=== PATIENT | male | born 1945 | race African-American/Black ===

== ENCOUNTER 2019-06-05 07:04 | Emergency (ER) | payer OTHER ==
[~2019-06-05] VITALS: Ht 175.3 cm; Wt 102.0 kg
[2019-06-05 08:38] LABS: BASOPHILS % 0.2 % (0.0-2.0); EOSINOPHILS % 0.1 % (0.0-5.0); HEMATOCRIT. 46.5 % (42.0-52.0); HEMOGLOBIN. 15.1 g/dL (14.0-18.0); LYMPHOCYTES % 8.4 % (20.0-50.0); MEAN CORPUSCULAR HEMOGLOBIN 30.5 pg (28.0-32.0); MEAN CORPUSCULAR VOLUME 94.1 fL (80.0-94.0); MEAN PLATELET VOLUME 10.2 fl (7.4-10.4); MONOCYTES % 3.4 % (2.0-8.0); NEUTROPHILS % 87.9 % (40.0-76.0); PLATELET 158 x1000/uL (130-400); RED BLOOD CELL COUNT 4.94 mill/uL (4.7-6.1); RED CELL DISTRIBUTION WIDTH 15.8 % (11.6-14.6)
[2019-06-05] MEDS: ONDANSETRON HCL 4MG/2ML INJ IV STA (08:38)
[2019-06-05] MEDS: DICYCLOMINE HCL 10MG/ML 2ML AMP IM ONE (08:39)
[2019-06-05] MEDS: SODIUM CHLORIDE 0.9% 1,000 ML IV ONE (08:39)
[2019-06-05 08:41] LABS: CHLORIDE 102 mEq/L (98-107)
[2019-06-05] MEDS ORDERED: IOHEXOL-300 100 ML BOTTLE ONE (10:29)
[2019-06-05 11:48] LABS: CLARITY URINE CLOUDY (CLEAR); COLOR URINE DARK YELLOW (YELLOW); KETONES URINE TRACE (NEGATIVE); LEUKOCYTE ESTERASE URINE 1+ (NEGATIVE); NITRITE URINE NEGATIVE (NEGATIVE); OCCULT BLOOD URINE NEGATIVE (NEGATIVE); PH URINE 5.5 (4.5-8.0); PROTEIN URINE 1+ (NEGATIVE); SPECIFIC GRAVITY URINE 1.035 (1.005-1.030)
[2019-06-05] MEDS ORDERED: PIPERACILLIN/TAZOBACTAM 3.375GM/50ML PREMIX IV ONE (13:00)
[2019-06-05] MEDS: MORPHINE SULFATE 2 MG/ML CPJ (NOT FOR IM USE) IV ONE (13:20)
[2019-06-05] MEDS: PIPERACILLIN/TAZ 3.375G PREMIX 50 ML IV NR (13:20)
[2019-06-05 14:42] VITALS: BP 134/95
== END 2019-06-05 14:42 | disposition short-term general hospital (02) ==
LOC: ER 07:34 → CANBEDREQ 16:40
DX: R19.7 Diarrhea, unspecified (principal); E86.0 Dehydration; E78.00 Pure hypercholesterolemia, unspecified; I10 Essential (primary) hypertension; Z96.649 Presence of unspecified artificial hip joint
CPT/HCPCS: 36415; 74177; 80053; 81003; 82962; 83690; 84484; 85025; 93005; 96361; 96365; 96372; 96375; 99285; J0500; J2270; J2405; J2543; J7030; Q9967